=== PATIENT | female | born 1960 | race Caucasian/White ===

== ENCOUNTER → 2017-02-01 | Outpatient (CLI) | payer BC | END | disposition home or self-care (01) | LOC: C.PATHSPEC 15:13 | PROVIDERS: ATTEND Obstetrics & Gynecology | DX: D36.17 Benign neoplasm of peripheral nerves and autonomic nervous system of trunk, unspecified (principal); D36.12 Benign neoplasm of peripheral nerves and autonomic nervous system, upper limb, including shoulder ==

== ENCOUNTER → 2017-04-05 | Outpatient (CLI) | payer BC ==
--- NOTE | 2017-04-05 14:19 | MAMMOGRAPHY REPORT ---
BILATERAL DIGITAL SCREENING MAMMOGRAM TOMOSYNTHESIS WITH CAD: 04/05/2017 CLINICAL HISTORY: Routine screening. Patient has no complaints. TECHNIQUE: Breast tomosynthesis in addition to standard 2D mammography was performed. Current study was also evaluated with a Computer Aided Detection (CAD) system. COMPARISON: Comparison is made to exams dated: 03/03/2016 mammogram, 02/16/2015 mammogram, 01/13/2013 m ammogram, 12/14/2011 ultrasound, 12/14/2011 mammogram, and 12/05/2011 mammogram - [facility]. BREAST COMPOSITION: The tissue of both breasts is heterogeneously dense, which may obscure small mas ses. FINDINGS: No suspicious masses, calcifications, or areas of architectural distortion are noted in ei ther breast. There has been no significant interval change compared to prior exams. Asymmetry in the left subareolar breast on the cc view appears similar to the prior 2012 exam and has the appearance of normal fibroglandular tissue on the tomosynthesis images. IMPRESSION: ACR BI-RADS CATEGORY 2: BENIGN There is no mammographic evidence of malignancy. A 1 year screening mammogram is recommended. The pa tient will receive written notification of the results. Approximately 10% of breast cancers are not detected with mammography. A negative mammographic report should not delay biopsy if a clinically suggestive mass is present. Ana Maria Beavers M.D. /:04/05/2017 13:34:15 [employer]: Rosemarie Guido [facility] letter sent: Normal 1/2 BI-RADS Code: ACR BI-RADS Category 2: Benign
== END | disposition home or self-care (01) ==
LOC: C.MAMM 12:58
PROVIDERS: ATTEND Obstetrics & Gynecology
DX: Z12.31 Encounter for screening mammogram for malignant neoplasm of breast (principal)